=== PATIENT | female | born 1990 | race Caucasian/White ===

== ENCOUNTER 2020-09-25 09:50 | Emergency (ER) | payer OTHER ==
[~2020-09-25 09:50] MED LIST: BACITRACIN15 GM TOP; IBUPROFEN800 MG PO
[2020-09-25 10:50] LABS: HCT 36.4 % (37.0-47.0); HGB 11.5 g/dL (12.5-16.0)
== END 2020-09-25 12:11 | disposition home or self-care (01) ==
LOC: FER 09:50
PROVIDERS: Emergency Medicine
DX: O03.9 Complete or unspecified spontaneous abortion without complication (principal)
CPT/HCPCS: 36415; 85014; 85018; 88305; 99284

== ENCOUNTER 2020-10-16 17:10 | Emergency (ER) | payer OTHER | END 2020-10-16 17:35 | disposition left against medical advice (07) | LOC: FER 17:10 | DX: H57.11 Ocular pain, right eye (principal); Z53.8 Procedure and treatment not carried out for other reasons ==

== ENCOUNTER 2021-03-25 02:02 | Emergency (ER) | payer OTHER | END 2021-03-25 03:10 | disposition home or self-care (01) | LOC: FER 02:02 | DX: S01.112A Laceration without foreign body of left eyelid and periocular area, initial encounter (principal); W16.012A Fall into swimming pool striking water surface causing other injury, initial encounter; Y92.008 Other place in unspecified non-institutional (private) residence as the place of occurrence of the external cause ==